=== PATIENT | male | born 1985 | race Two or more races ===

== ENCOUNTER 2016-10-10 12:16 | Emergency (ER) | payer OTHER ==
[~2016-10-10] VITALS: Ht 180.3 cm; Wt 68.0 kg
[2016-10-10 12:18] VITALS: BP 132/67; PULSE 60; RESP 20; TEMP 98.1; O2SAT 99
--- NOTE | 2016-10-10 13:00 | PD ---
HPI Chief Complaint: Exposure to Blood/Body Fluids Time Seen by Provider: 12:56 Travel History International Travel<30 days: No Contact w/Intl Traveler<30days: No Traveled to known affect area: No History of Present Illness HPI Patient is a 31-year-old male presenting to come for evaluation after being exposed to blood or body fluid at work just prior to arrival. 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 Patient states that he irrigated the area well after the injury occurred. He denies any physical complaints or significant past medical history at this time. [facility] Past Medical History Medical History: Denies Significant Hx Social History Alcohol Use: No Tobacco Use: No Allergies-Medications (Allergen,Severity, Reaction): Coded Allergies: No Known Allergies (Unverified , 10/10/16) Review of Systems Except as stated in HPI: all other systems reviewed are Neg Skin: Positive Other (1 mm puncture wound to lateral aspect of left thumb) Physical Exam Narrative GENERAL: Well-nourished, well-developed patient. SKIN: Warm and dry. 1 mm superficial puncture HEAD: Normocephalic. EYES: No scleral icterus. No injection or drainage. NECK: Supple, trachea midline. No JVD or lymphadenopathy. CARDIOVASCULAR: Regular rate and rhythm without murmurs, gallops, or rubs. RESPIRATORY: Breath sounds equal bilaterally. No accessory muscle use. GASTROINTESTINAL: Abdomen soft, non-tender, nondistended. MUSCULOSKELETAL: No cyanosis, or edema. BACK: Nontender without obvious deformity. No CVA tenderness. Data Data Last Documented VS Vital Signs Date Time Temp Pulse Resp B/P Pulse Ox O2 Delivery O2 Flow Rate FiO2 10/10/16 12:18 98.1 60 20 132/67 99 Room Air MDM Medical Decision Making Medical Screen Exam Complete: Yes Emergency Medical Condition: Yes Interpretation(s) Vital Signs Date Time Temp Pulse Resp B/P Pulse Ox O2 Delivery O2 Flow Rate FiO2 10/10/16 12:18 98.1 60 20 132/67 99 Room Air Differential Diagnosis Puncture wound versus exposure versus cellulitis versus other Narrative Course Patient is a 31-year-old male presenting to the emergency room for evaluation after being exposed to blood or body fluid volume operating room today. There is a small superficial appearing puncture phuong to the left thumb on the lateral aspect. Discussed postexposure prophylaxis with patient, Patient does not want postexposure prophylaxis at this time, source patient is being tested he will defer until that time. Patient was advised to follow-up with employee medical return to emergency department for any new or worsening symptoms. Diagnosis Primary Impression: Exposure to blood or body fluid Referrals: Employ Med Patient Instructions: Postexposure Prophylaxis (ED), General Instructions Additional Instructions: Follow-up with employee med Return to emergency department for any new or worsening symptoms Med/Other Pt SpecificInfo: No Change to Meds Disposition: 01 DISCHARGE HOME Condition: Stable Nafisa Vásquez Oct 10, 2016 13:00
== END 2016-10-10 13:29 | disposition home or self-care (01) ==
LOC: NEPB 12:16
DX: Z77.21 Contact with and (suspected) exposure to potentially hazardous body fluids (principal); S61.032A Puncture wound without foreign body of left thumb without damage to nail, initial encounter; W26.8XXA Contact with other sharp object(s), not elsewhere classified, initial encounter; Y93.F9 Activity, other caregiving; Y92.234 Operating room of hospital as the place of occurrence of the external cause; Y99.0 Civilian activity done for income or pay
CPT/HCPCS: 99283

== ENCOUNTER → 2017-08-01 | Outpatient (CLI) | payer OTHER ==
[2017-08-03 10:24] LABS: APPEARANCE Normal; DOUBLE FORM 2.5 %; HEAD SIZE ABNORMAL 5.5 %; MIDPIECE ABNORMAL 11.5 %; MOTILE/EJACULATE 7.3 x10(6) (>=9.0); MOTILE/mL 2.9 x10(6) (>=6.0); MOTILITY 21 % (>=40); SEMEN VOLUME 2.5 mL (>=1.5); SPERM/ML 13.6 x10(6) (>=15.0); TAIL ABNORMAL 32.5 %
== END ==
LOC: CLAB 06:42
DX: N46.9 Male infertility, unspecified (principal)
CPT/HCPCS: 89322

== ENCOUNTER 2017-08-16 12:24 | Emergency (ER) | payer OTHER ==
[~2017-08-16] VITALS: Ht 180.3 cm; Wt 90.5 kg
[2017-08-16 12:25] VITALS: BP 130/70; PULSE 59; RESP 16; TEMP 98.5; O2SAT 100
--- NOTE | 2017-08-16 12:52 | PD ---
HPI Chief Complaint: Exposure to Blood/Body Fluids Time Seen by Provider: 12:38 Travel History International Travel<30 days: Yes Contact w/Intl Traveler<30days: Yes Name of Country Traveled to: [place] Traveled to known affect area: No History of Present Illness HPI 32-year-old male presents to the emergency department with complaint of dirty needle stick to his left fourth finger today. He is in [employer] employee. Up-to -date on tetanus vaccination. Denies history of HIV or hepatitis. Source status unknown. Patient declining initiation of PEP therapy at this time. Denies paresthesias, loss of sensation, decreased range of motion, decreased strength, erythema, edema of the affected finger. Current symptoms are mild in severity. No known relieving or aggravating factors. Has no other emergent medical complaints. No known allergies. No other modifying factors or associated signs and symptoms. PFSH Social History Alcohol Use: No Tobacco Use: No Allergies-Medications (Allergen,Severity, Reaction): Coded Allergies: No Known Allergies (Unverified , 10/10/16) Review of Systems Except as stated in HPI: all other systems reviewed are Neg Physical Exam Narrative GENERAL: Well-nourished, well-developed male patient, in no acute distress SKIN: Warm and dry. Point, puncture wound to left hand 4th digit; no erythema, no edema, no drainage. HEAD: Atraumatic. Normocephalic. EYES: Pupils equal and round. No scleral icterus. No injection or drainage. ENT: Mucosa pink and moist. Airway patent. NECK: Trachea midline. CARDIOVASCULAR: Regular rate. RESPIRATORY: No accessory muscle use. GASTROINTESTINAL: Flat. MUSCULOSKELETAL: No obvious deformities. No clubbing. No cyanosis. No edema. NEUROLOGICAL: Awake and alert. Oriented 3. No obvious cranial nerve deficits. Motor grossly within normal limits. Normal speech. PSYCHIATRIC: Appropriate mood and affect; insight and judgment normal. Data Data Last Documented VS Vital Signs Date Time Temp Pulse Resp B/P (MAP) Pulse Ox O2 Delivery O2 Flow Rate FiO2 08/16/17 12:25 98.5 59 16 130/70 (90) 100 Room Air MDM Medical Decision Making Medical Screen Exam Complete: Yes Emergency Medical Condition: Yes Medical Record Reviewed: Yes Differential Diagnosis Exposure to blood or bodily fluid, fingerstick, medical clearance Narrative Course 32-year-old male, [employer] employee, with exposure to blood her bodily fluid from dirty needle stick. Exposure protocol initiated. Patient declined PEP at this time and I agree. Instructed patient to follow-up with employee med. Instructed patient to follow up with primary care provider. Patient verbalizes understanding and agreement with treatment plan. Patient is medically cleared and stable for discharge. Discussed reasons to return to the emergency department. Patient agrees with treatment plan. The patients vital signs are stable and the patient is stable for outpatient follow-up and treatment. Patient discharged home, stable and in no acute distress. Diagnosis Primary Impression: Exposure to blood or body fluid Additional Impression: Needlestick injury of finger of left hand Qualified Codes: S61.239A - Puncture wound without foreign body of unspecified finger without damage to nail, initial encounter; W27.3XXA - Contact with needle (sewing), initial encounter Referrals: Employ Paul Medeiros ([employer] [facility] [place] Human Resources Primary Care Physician Patient Instructions: Body Substance Exposure (ED), General Instructions, Needle Stick Injuries (ED) Additional Instructions: Follow blood exposure protocol instructions Follow-up with employee med Follow-up with primary care Return to emergency department for worsening of symptoms Med/Other Pt SpecificInfo: No Change to Meds, No Meds Exist/No RX given Disposition: 01 DISCHARGE HOME Condition: Stable Jenna Flanagan Aug 16, 2017 12:52
== END 2017-08-16 13:02 | disposition home or self-care (01) ==
LOC: NEPK 12:24
DX: Z77.21 Contact with and (suspected) exposure to potentially hazardous body fluids (principal); S61.235A Puncture wound without foreign body of left ring finger without damage to nail, initial encounter; W46.0XXA Contact with hypodermic needle, initial encounter; Y92.239 Unspecified place in hospital as the place of occurrence of the external cause
CPT/HCPCS: 99281